=== PATIENT | male | born 1975 | race Caucasian/White ===

== ENCOUNTER 2022-08-04 06:52 | Emergency (ER) | payer BC, SELFPAY ==
--- NOTE | ~2022-08-04 | XR_ITS ---
EXAMINATION: XR chest 2V DATE: 08/04/2022 08:17 INDICATION: Palpitations. Lightheadedness. TECHNIQUE: Frontal and lateral views of the chest were obtained. COMPARISON: None. FINDINGS: The chest demonstrates clear lungs without pneumonia, pleural effusion, or pneumothorax. Th e heart size is normal. IMPRESSION: 1. No acute cardiopulmonary disease. Reviewed, dictated and finalized at location A.
--- NOTE | 2022-08-04 06:59 | ECG_ITS ---
Measurements Intervals [place] Rate: 68 P: 35 CA: 194 QRS: 22 QRSD: 101 T: 33 QT: 349 QTc: 373 Interpretive Statements SINUS RHYTHM WITH SINUS ARRHYTHMIA NORMAL ECG NO PREVIOUS ECG AVAILABLE FOR COMPARISON Electronically Signed On 08-04-2022 7:11:46 CDT by Benny Smart D.O.
[2022-08-04 07:07] VITALS: PULSE 77
--- NOTE | 2022-08-04 07:07 | ED.DIZZY ---
HPI - Dizziness General Chief Complaint: Dizziness Stated Complaint: Dizzy Time Seen by Provider: 08/04/22 07:05 History of Present Illness HPI Narrative: The patient is a 46 yo male with a history of NV, CAD, BPPV, presenting for evaluation of dizziness that began 6 days ago. Pt reports that his last episode was yesterday, but does endorse lightheadedness or floating sensation. Pt states this is atypical from his usual bouts of vertigo. Pt did have one episode of emesis last week with dizziness that has resolved. Pt reports associated mild frontal headache which is improved with oral acetaminophen. Pt denies focal weakness or numbness. He denies chest pain or dyspnea. Pt also reports mild fluttering palpitation, which occur for years and states he has no diagnosis of this in the past. Pt did take Dramamine at 530 am this morning. Related Data Allergies Allergy/AdvReac Type Severity Reaction Status Date / Time No Known Allergies Allergy Verified 08/04/22 07:03 Review of Systems Review of Systems: CONSTITUTIONAL: Denies fever, chills, or sweats. EYES: Denies visual changes, redness, or discharge. ENT: Denies rhinorrhea, congestion CARDIOVASCULAR: Denies chest pain, endorses chronic palpitations RESPIRATORY: Denies cough or dyspnea. GASTROINTESTINAL: Denies abdominal pain, nausea, vomiting, or diarrhea. GENITOURINARY: Denies dysuria or hematuria. SKIN: Denies rash or itching. MUSCULOSKELETAL: Denies back pain, joint pain, or myalgia. NEUROLOGIC: Denies headache, numbness, or weakness. Pt does not endorse dizziness currently. [facility] Surgical History Surgical History (Updated 08/04/22 @ 07:47 by Sonia Tomas MD) H/O heart artery stent Social History Social History (Updated 08/04/22 @ 07:47 by Sonia Tomas MD) Smoking status: Former smoker Alcohol intake: never Substance use: never Living arrangements: alone Gender identity (if verbalized by the patient): Male Exam Narrative: GENERAL: Awake, alert, conversant HEAD: Normocephalic, atraumatic. EYES: PERRLA and EOMI. ENT: Nares clear, no rhinorrhea or epistaxis. Mucous membranes moist. NECK: Supple. CHEST: No respiratory distress, breathing even and non labored HEART: Regular rate, sinus rhythm ABDOMEN:Non distended, non tender EXTREMITIES: Normal range of motion. No edema. SKIN: Warm, dry, no rash. NEURO:No focal deficits. Alert and oriented x3, finger to nose intact bilaterally. EOMs intact without nystagmus. No facial droop/asymmetry noted bilaterally. Grimace intact. Intact sensation in face. Hearing intact bilaterally. Shoulder shrug intact. Strength 5/5 bilateral upper extremities. Strength 5/5 bilateral lower extremities. Reflexes 2+ patellar. Heel to escoto intact bilaterally. Ambulatory with a narrow based, steady gait. Course Vital Signs Vital signs: Vital Signs Pulse Rate 77 08/04/22 07:07 Pulse Rate 75 08/04/22 08:53 Respiratory Rate 19 08/04/22 08:53 Blood Pressure 134/96 H 08/04/22 08:53 Pulse Oximetry 98 08/04/22 08:53 MDM - Dizziness MDM Narrative Medical decision making narrative: The patient was evaluated for dizziness. Based on neurological assessment and clinical symptoms, patient's vertigo is felt to be likely peripheral in origin. Pt without current dizziness or spinning sensation at time of assessment. There is no diplopia, dysarthria or dysphagia. Patient's gait is stable and there are no cerebral deficits to exam. He has a normal neurological exam without ataxia or dysmetria. Risk factor for central causes of vertigo reviewed and felt to be unlikely. Pt without significant headache, vision changes or other red flag symptoms. No systemic infectious type symptoms. No urinary symptoms or abdominal pain. Pt declined meclizine in the ER as he was feeling improved. Patient felt likely reasonable for continued outpatient management and risks are felt to outweigh benefits for further imaging studies a
[2022-08-04 07:14] VITALS: BP 170/109; PULSE 81; RESP 20; O2SAT 100
[2022-08-04 07:25] LABS: Alanine Aminotransferase 32 U/L (6-50); Albumin Level 4.7 g/dL (3.5-5.1); Alkaline Phosphatase 87 U/L (38-126); Anion Gap 12 mmol/L (8-16); Aspartate Amino Transferase 28 U/L (17-59); Bilirubin,Total 0.4 mg/dL (0.2-1.3); Blood Urea Nitrogen 15 mg/dL (9-20); Calcium 9.5 mg/dL (8.4-10.2); Carbon Dioxide 24 mmol/L (22-30); Chloride 102 mmol/L (98-107); Estimated CRCL calculation 99 ml/min; Estimated Glomerular Filt Rate > 60; Glucose 137 mg/dL (65-110); Potassium 4.2 mmol/L (3.4-5.0); Sodium 138 mmol/L (137-145)
[2022-08-04 07:41] LABS: Basophils Absolute Auto 0.1 K/mm3 (0.0-0.1); Basophils Percent Auto 0.6 % (0.2-1.2); Eosinophils Absolute Auto 0.3 K/mm3 (0-0.3); Eosinophils Percent Auto 3.1 % (0-4.4); Hematocrit 48.9 % (42.0-52.0); Hemoglobin 16.1 g/dL (14.0-18.0); Immature Granulocyte Absolute 0.18 K/mm3 (0.00-0.031); Immature Granulocyte Percent A 1.7 % (0-0.5); Lymphocytes Absolute Auto 2.23 K/mm3 (0.9-3.2); Lymphocytes Percent Auto 20.6 % (18.3-44.2); Mean Corpuscular HGB Conc 32.9 g/dl (32-36); Mean Corpuscular Hemoglobin 28.4 pg (26-34); Mean Corpuscular Volume 86.2 fl (80-100); Mean Platelet Volume 10.7 fl (7.4-10.4); Monocytes Absolute Auto 0.7 K/mm3 (0.1-0.6); Monocytes Percent Auto 6.1 % (2.6-8.5); Neutrophils Absolute Auto 7.4 K/mm3 (1.3-6.7); Neutrophils Percent Auto 67.9 % (45.5-73.1); Platelet Count Result 192 k/mm3 (150-375); Red Blood Count 5.67 M/mm3 (4.6-6.20); Red Cell Distribution Width 12.7 % (11.5-14.5); White Blood Count 10.8 K/mm3 (4.5-10.0)
[2022-08-04 07:51] VITALS: BP 136/90; BP 153/105; BP 153/113; PULSE 72; PULSE 83
[2022-08-04] MEDS: SODIUM CHLORIDE 0.9% IV 1,000 ML 999 ML IV CONT (07:58)
[2022-08-04 08:53] VITALS: BP 134/96; PULSE 75; RESP 19; O2SAT 98
[2022-08-04 08:54] LABS: Troponin I < 0.012 ng/mL (0.000-0.034)
[2022-08-04 09:45] VITALS: BP 140/101; PULSE 87; RESP 14; O2SAT 98
== END 2022-08-04 09:50 | disposition home or self-care (01) ==
PROVIDERS: Emergency Medicine; Emergency Provider Emergency Medicine; PCP Hospitalist
DX: H81.10 Benign paroxysmal vertigo, unspecified ear (principal); I25.10 Atherosclerotic heart disease of native coronary artery without angina pectoris; I25.2 Old myocardial infarction; Z95.5 Presence of coronary angioplasty implant and graft; Z87.891 Personal history of nicotine dependence
CPT/HCPCS: 36415; 71046; 80053; 84484; 85025; 93005; 96360; 99284; J7030